=== PATIENT | female | born 1940 ===

== ENCOUNTER → 2024-12-23 10:53 | Outpatient (REF) | payer OTHER, SELFPAY | LOC: RAD 10:53 | PROVIDERS: ATTENDING PHYSICIAN Family Medicine | DX: M79.89 Other specified soft tissue disorders (principal); R09.89 Other specified symptoms and signs involving the circulatory and respiratory systems | CPT/HCPCS: 93922; 93925 ==

== ENCOUNTER 2025-05-03 14:58 | Inpatient (IN) | payer OTHER, SELFPAY ==
[2025-05-03] VITALS (11 sets, daily range): BP systolic 115–177; BP diastolic 59–109; BMI 19.3; BMI 18.6
[2025-05-03 11:53] LABS: Hematocrit 46.7 % (37.0-47.0); Hemoglobin 15.5 g/dL (12.0-16.0); Mean Corp Hgb Conc. 33.2 g/dL (33.0-37.0); Mean Corpuscular Volume 89.5 fL (81.0-99.0); Nucleated Red Blood Cells % 0 %; Platelet Count 317 10^3/uL (130-400); Red Cell Dist. Width 13.3 % (11.5-14.5)
[2025-05-03] MEDS: DECADRON 8 MG IV (12:00)
[2025-05-03] MEDS: DUONEB 3 ML INH ×2 (12:00→19:10)
[2025-05-03] MEDS: VENTOLIN NEBULES 7.5 MG INH (12:00)
[2025-05-03 12:07] LABS: ALT (SGPT) 58 U/L (0-35); AST (SGOT) 66 U/L (14-36); Albumin 4.2 g/dl (3.5-5.0); Alkaline Phosphatase 207 U/L (38-126); Blood Urea Nitrogen 32 mg/dl (7-17); Calcium 9.7 mg/dl (8.4-10.2); Carbon Dioxide 32 mmol/L (22-30); Chloride 92 mmol/L (98-107); Estimated Creatinine Clearance 40 ml/min; Glucose 123 mg/dl (70-99); Potassium 4.3 mmol/L (3.5-5.1); Sodium 133 mmol/L (135-145); Total Protein 7.7 g/dl (6.3-8.2); eGFR > 60.00
[2025-05-03 12:13] LABS: COVID-19 Antigen Negative (Negative)
--- NOTE | 2025-05-03 13:24 | HPS.HSE ---
Addendum entered and electronically signed by Armani Rainey MD 05/03/25 15:12:
This is an addendum to H&P written by Ada Batres on 05/03/2025. �Patient seen and examined independently with resident.
84-year-old female past medical history of hyperlipidemia, vertigo, essential hypertension, osteoporosis, COPD, hypothyroidism, presenting with shortness of breath 4 days. �Tmax 100. �Productive cough. �Generalized body aches and headaches, 1
episode diarrhea.
O2 saturation 70s requiring 2 L oxygen. �Tachycardic up to 120s. �Tachypneic. �Crackles on examination.
Labs show leukocytosis of 19. �Mild transaminitis. �COVID and flu negative. �Chest x-ray shows diffuse interstitial opacification with patchy superimposed airspace opacities likely pneumonia less likely atelectasis. �Appears to be 4.2 cm cystic
focus with layering hyperdensity inferiorly within the medial right lower lung pulmonary abscess possible hiatal hernia.
Patient with sepsis secondary to pneumonia/possible pulmonary abscess/COPD exacerbation. �Check CT PE chest. �IV fluids. �Check sputum culture, blood cultures, urine strep antigen, urine Legionella, Zosyn/doxycycline. �Continue DuoNebs,
dexamethasone.
Original Note:
Family Physician
-
Family Physician: Karen Aguilar MD
Chief Complaint
-
Shortness of breath
History of Present Illness
84-year-old female with past medical history of hyperlipidemia, vertigo, essential hypertension, osteoporosis, COPD/emphysema, hypothyroidism, presenting to the ER reporting shortness of breath. She was earlier seen by her primary care physician in
the office today, who were concerned about her low oxygen saturation and SOB and was advised to be seen at ER. Patient reports having congestion that started 4 days ago. She had spiked a temperature of Tmax�100 degrees a day later, and started
having shortness of breath, body aches, headaches, low appetite. Patient had an episode of diarrhea in the morning today. Reports having chest tightness, while breathing and she has been using her rescue inhaler more frequently than before�4
times/day. Patient also reports having chronic productive cough, but she always swallows sputum. Patient had 40 pack years of smoking history, quit 50 years ago. Patient also reports that she moved from [place] recently 6 months ago and lives
with her daughter. No history of multiple hospitalizations before, no history of IV drug abuse.
ED course�at presentation 150/87, pulse�125, RR�24, on 2 L NC saturating at 90%, afebrile. WBC�19.7, hemoglobin�15.5, sodium�133, BUN/creatinine�32/0.9, glucose 123, AST/ALT�66/58, ALP�207. Nursing mentioned that she was saturating in high 70s,
off supplemental oxygen. COVID/influenza-negative. EKG with sinus tachycardia. Chest x-ray�diffuse interstitial infiltrates suggesting pneumonia, 4.2 cm cystic focus in the medial right lower lung suggestive of pulmonary abscess.
Medical History
Past Medical History
Past Medical History: Reports Other (hyperlipidemia, vertigo, essential hypertension, osteoporosis, COPD/emphysema, hypothyroidism,)
Past Surgical History: Reports Orthopedic
Social History
Tobacco: Former Smoker (40 pack years, quit 50 years ago)
Alcohol: None
Drug: None
Living: With Family
Employment: Retired
Family History
Family History: Not pertinent
Allergies / Home Medications
Allergies reflects when Allergies were last updated in [facility].
Home Medications with original date entered in [facility]
Allergy/Medication List:
Allergies
Allergy/AdvReac Type Severity Reaction Status Date / Time
No Known Allergies Allergy Unverified 05/03/25 11:09
Home Medications
acetaminophen 325 mg tablet (Tylenol) 650 mg PO Q6HPRN PRN mild pain 05/03/25
atorvastatin 20 mg tablet (Lipitor) 20 mg PO QPM High Cholesterol 05/03/25
budesonide-formoterol HFA 160 mcg-4.5 mcg/actuation aerosol inhaler (Symbicort) 2 inh inhalation R DAILY sob 05/03/25
chlorthalidone 25 mg tablet 25 mg PO DAILY Fluid Retention/Swelling 05/03/25
diltiazem HCl 360 mg capsule,extended release 24 hr 360 mg PO DAILY Heart Disease/Condition 05/03/25
fluticasone 100 mcg-salmeterol 50 mcg/dose blistr powdr for inhalation (Advair Diskus) 1 inh inhalation R BID sob 05/03/25
levothyroxine 25 mcg tablet (Synthroid) 25 mcg PO DAILY Thyroid 05/03/25
metoprolol succinate 50 mg tablet,extended release 24 hr (Toprol XL) 50 mg PO BID Heart Disease/Condition 05/03/25
spironolactone 25 mg tablet 25 mg PO QPM Fluid Retention/Swelling 05/03/25
Review of Systems
-
A 12 point ROS was completed and negative except as noted: Yes
Physical Exam
Vital Signs
Vital Signs
Temp Pulse Resp BP Pulse Ox
98.4 F 123 30 163/86 97
05/03/25 11:08 05/03/25 12:00 05/03/25 12:00 05/03/25 12:00 05/03/25 12:00
Physical Exam
General: Conversant
HEENT: NormoCephalic, Atraumatic and Oxygen (On 2 L nasal cannula, saturating at 94%)
Respiratory: Rhonchi and Crackles
Cardiac: S1/S2 and Tachycardia
GI: Soft, Non Tender, Non Distended and Normal Bowel Sounds
Skin: Warm and Dry
Neuro: Awake, Alert, Oriented and AO x 3
Psych: Calm
Laboratory Results
-
05/03/25 11:28
05/03/25 11:28
Laboratory Results
Total Bilirubin 1.0 mg/dl (0.2-1.3) 05/03/25 11:28
AST 66 U/L (14-36) H 05/03/25 11:28
ALT 58 U/L (0-35) H 05/03/25 11:28
Alkaline Phosphatase 207 U/L (38-126) H 05/03/25 11:28
Impression/Plan
-
IMPRESSION:
84-year-old female with past medical history of hyperlipidemia, vertigo, essential hypertension, osteoporosis, COPD/emphysema, hypothyroidism, presenting to the ER reporting shortness of breath.
PLAN:
#Acute hypoxemic respiratory failure
#Sepsis
Likely secondary to pneumonia versus lung abscess, with evidence of end organ damage (patient requiring supplemental oxygen)
Elevated white count, patient reported T max of 100 degrees at home.
COVID/influenza negative
Risk factor�COPD/emphysema
Will start Zosyn, doxycycline
Check sputum culture/Gram stain
Check Legionella, strep Ag
Check blood culture
Start IV fluids
Wean oxygen as tolerated, maintain SpO2 between 88-92%
Will check CT chest IV contrast
Admit to telemetry
#Acute on chronic COPD exacerbation
Wean oxygen as tolerated, maintain SpO2 between 88 to 92%
Dexamethasone 4 mg IV every 12
DuoNebs
#Lung abscess
Risk factors with COPD/emphysema
Will check CT chest with IV contrast
Patient does not have dysphagia, no history of aspiration
#Hyperlipidemia
Continue atorvastatin
#Mild transaminitis
Will monitor LFTs
Likely due to dehydration
#Mild hyponatremia
Sodium at 133
Monitor
#Essential hypertension
Continue chlorthalidone, diltiazem
Continue metoprolol, spironolactone
#Hypothyroidism
Continue levothyroxine
#Osteoporosis
#BPPV
DVT prophylaxis�Lovenox subcu
Diet�low-cholesterol
Full code
Admit to telemetry
[2025-05-03] MEDS: ZITHROMAX INFUSION 250 IV (13:26)
[2025-05-03] MEDS: ROCEPHIN 1000 MG IV (13:26)
[2025-05-03] MEDS: DUONEB INH (17:04)
[2025-05-03] MEDS: NSS 1000 IV ×2 (17:12→18:53)
[2025-05-03] MEDS: LIPITOR 20 MG PO (17:17)
[2025-05-03] MEDS: CARDIZEM CD 360 MG PO (17:17)
[2025-05-03] MEDS: SYNTHROID 25 MCG PO (17:17)
[2025-05-03] MEDS: ALDACTONE 25 MG PO (17:17)
[2025-05-03] MEDS: DECADRON 4 MG IV ×2 (17:18→23:03)
[2025-05-03] MEDS: LOVENOX 40 MG SC (17:19)
[2025-05-03 18:04] LABS: Urine Character Clear (Clear)
[2025-05-03 18:26] LABS: Urine Urothelial Cell 0-2 /LPF (FEW)
[2025-05-03] MEDS: ADVAIR HFA 45/21 MCG INHALER 2 PUFF INH (19:10)
[2025-05-03] MEDS: TOPROL XL 50 MG PO (19:40)
[2025-05-03] MEDS: ZOSYN 50 IV (19:40)
[2025-05-03] MEDS: VIBRAMYCIN 100 MG PO (19:40)
[2025-05-04] VITALS (7 sets, daily range): BP systolic 102–130; BP diastolic 54–58; PULSE 88; O2SAT 95
[2025-05-04] MEDS: ZOSYN 50 IV ×4 (01:02→19:54)
[2025-05-04] MEDS: NSS 1000 IV ×3 (02:59→19:53)
[2025-05-04 04:48] LABS: ALT (SGPT) 44 U/L (0-35); AST (SGOT) 33 U/L (14-36); Albumin 2.9 g/dl (3.5-5.0); Alkaline Phosphatase 144 U/L (38-126); Blood Urea Nitrogen 22 mg/dl (7-17); Calcium 8.4 mg/dl (8.4-10.2); Carbon Dioxide 30 mmol/L (22-30); Chloride 101 mmol/L (98-107); Estimated Creatinine Clearance 43 ml/min; Glucose 151 mg/dl (70-99); Potassium 3.9 mmol/L (3.5-5.1); Sodium 137 mmol/L (135-145); Total Protein 5.7 g/dl (6.3-8.2); eGFR > 60.00
[2025-05-04] MEDS: DECADRON 4 MG IV (05:04)
[2025-05-04] MEDS: SYNTHROID 25 MCG PO (05:04)
[2025-05-04 05:26] LABS: Hematocrit 34.3 % (37.0-47.0); Hemoglobin 11.6 g/dL (12.0-16.0); Mean Corp Hgb Conc. 33.8 g/dL (33.0-37.0); Mean Corpuscular Volume 90.3 fL (81.0-99.0); Nucleated Red Blood Cells % 0 %; Platelet Count 186 10^3/uL (130-400); Red Cell Dist. Width 13.3 % (11.5-14.5)
[2025-05-04] MEDS: DUONEB 3 ML INH ×4 (07:41→19:55)
[2025-05-04] MEDS: ADVAIR HFA 45/21 MCG INHALER 2 PUFF INH (07:44)
[2025-05-04] MEDS: VIBRAMYCIN 100 MG PO ×2 (08:06→19:54)
[2025-05-04] MEDS: CARDIZEM CD 360 MG PO (08:06)
[2025-05-04] MEDS: TOPROL XL 50 MG PO ×2 (08:07→19:53)
[2025-05-04] MEDS: SYMBICORT 160/4.5 MCG INHALER 2 PUFF INH (08:25)
--- NOTE | 2025-05-04 10:00 | W.PN.HOSP.TC ---
Addendum entered and electronically signed by Tyler Monsalve DO 05/05/25 12:06:
Underweight
Original Note:
Today's Communication/Plan
-
Pulmonary consult
Continue ABX
Continue steroids
Assessment / Plan
Assessment / Plan
84-year-old female with past medical history of hyperlipidemia, vertigo, essential hypertension, osteoporosis, COPD/emphysema, hypothyroidism, presenting to the ER reporting shortness of breath.
PLAN:
#Acute hypoxemic respiratory failure
#Sepsis
#COPD
#Acute on chronic COPD exacerbation
CT chest with severe acute on chronic endobronchial infection on both lungs, bronchiectasis, thick walled cyst, nodular opacity
Likely secondary to pneumonia versus lung abscess versus bronchiolitis, with evidence of end organ damage (patient requiring supplemental oxygen)
Elevated white count, patient reported T max of 100 degrees at home.
COVID/influenza negative
Risk factor�COPD/emphysema
Obtain sputum culture/Gram stain
Legionella, strep Ag negative
Follow-up blood culture
Continue IV fluids
Wean oxygen as tolerated, maintain SpO2 between 88-92%
-Continue Zosyn, doxycycline
- Continue IV fluids
- On 2 L supplemental oxygen
- Dexamethasone 4 mg IV every 12
- DuoNebs
- Pulmonary consulted, appreciate recs
#Lung abscess
Risk factors with COPD/emphysema
CT chest with severe acute on chronic endobronchial infection on both lungs, bronchiectasis, thick walled cyst, nodular opacit
-Continue Zosyn and doxycycline
#Hyperlipidemia
Continue atorvastatin
#Mild transaminitis
CT chest with moderate hepatic cirrhosis
Will monitor LFTs
#Mild hyponatremia, resolved
Sodium at 137
Monitor
#Essential hypertension
Continue chlorthalidone, diltiazem
Continue metoprolol, spironolactone
#Hypothyroidism
Continue levothyroxine
DVT prophylaxis�Lovenox subcu
Diet�low-cholesterol
CODE STATUS: Full code
Anticipated Discharge: 24 - 48 hours
Subjective/Interval History
-
Patient reports feeling much better than yesterday. Reports improved shortness of breath but has not gotten up and moved around to assess if she has shortness of breath with exertion. She reported no chest pain and 1 episode of diarrhea. Reports
no fevers or chills yesterday no nausea vomiting. When asked about heart medications patient does not endorse any heart issues. Patient did endorse chronic cough but has not noticed any change in phlegm and she does not spit out. Date of Service:
May 04, 2025
Objective Data
-
Labs:
Laboratory Results
05/04/25
04:05
WBC 7.1
Hgb 11.6 L D
Hct 34.3 L
Plt Count 186 D
Sodium 137
Potassium 3.9
Chloride 101
Carbon Dioxide 30
BUN 22 H
Creatinine 0.8
Glucose 151 H
Calcium 8.4
Total Bilirubin 0.4
AST 33
ALT 44 H
Alkaline Phosphatase 144 H
Vital Signs:
Vital Signs
Temp Pulse Resp BP Pulse Ox
98.0 F 97 18 148/71 99
05/04/25 03:00 05/04/25 08:06 05/04/25 07:46 05/04/25 08:06 05/04/25 07:46
I&O
05/03/25 05/04/25 05/05/25
06:59 06:59 06:59
Intake Total 1600 / 1600
Balance 1600 / 1600
Review of Systems
-
History Source: Patient
Constitutional: Denies Fever or Chills
EENT: Denies Runny Nose
Respiratory: Reports Cough; Denies Wheezing
Cardiac: Denies Chest Pain or Palpitations
Abdomen/GI: Denies Abdominal Pain, Nausea, Vomiting, Diarrhea or Constipated
Genitourinary: Denies Dysuria
Neuro: Denies Headache or Ataxia
Physical Exam
-
General: Well Developed, Well Nourished, No Apparent Distress and Comfortable; Negative Fever
HEENT: Normocephalic and Atraumatic
Respiratory: Crackles (Upper lung pena bilaterally) and Non Labored Respirations; Negative Wheezes
Cardiac: Regular Rhythm and S1/S2; Negative Murmur
GI: Soft, Nontender, Nondistended and Normal Bowel Sounds
Musculoskeletal: No Edema
Skin: Warm and Dry
[2025-05-04] MEDS: PROTONIX 40 MG PO (11:50)
[2025-05-04] MEDS: DELTASONE 40 MG PO (11:50)
--- NOTE | 2025-05-04 12:00 | CON.PUL ---
Consultation
Consultation Request
Date/Time Consultation Requested: 05/04/2024
Date/Time Consultation Performed: 05/04/2025
Requesting Provider: Dr. Rainey
Performing Provider: Dr. Fredo Hobbs
Reason for Consultation: Pneumonia
Medical History
-
History of Present Illness:
84-year-old woman with past medical history significant for hyperlipidemia, hypertension, osteoporosis, COPD/emphysema, hypothyroidism who presented to the emergency room complaining of shortness of breath.
Prior to admission she was seen by primary care and she was found to be hypoxemic. She was sent to the emergency room for evaluation.
Patient reports symptoms started about 4 days prior to admission with congestion and low-grade fevers.
Denied any hemoptysis or purulent sputum production.
She did report some diarrhea earlier prior to admission.
She recently moved from [place] 6 months ago and lives with her daughter.
-She was found to be
Short of breath, she had leukocytosis, chest x-ray showed bilateral increased interstitial infiltrates suggestive of pneumonia.
I was consulted for further evaluation on 05/04/2025.
Past Medical History
Past Medical History: Other (See assessment and plan)
Social History
Tobacco: Former Smoker (Quit many years ago)
Alcohol: None
Living: With Family
Employment: Retired
Family History
Family History: Reviewed & Not Pertinent
Allergies / Home Medications
Allergies
Allergy/AdvReac Type Severity Reaction Status Date / Time
No Known Allergies Allergy Unverified 05/03/25 11:09
Home Medications
�Medication �Instructions �Recorded �Confirmed �Last Taken �Type
acetaminophen 325 mg tablet 650 mg PO Q6HPRN PRN mild pain 05/03/25 05/03/25 05/01/25 History
(Tylenol)
atorvastatin 20 mg tablet (Lipitor) 20 mg PO QPM High Cholesterol 05/03/25 05/03/25 05/02/25 History
budesonide-formoterol HFA 160 2 inh inhalation R DAILY sob 05/03/25 05/03/25 05/02/25 History
mcg-4.5 mcg/actuation aerosol
inhaler (Symbicort)
chlorthalidone 25 mg tablet 25 mg PO DAILY Fluid 05/03/25 05/03/25 05/02/25 History
Retention/Swelling
diltiazem HCl 360 mg 360 mg PO DAILY Heart 05/03/25 05/03/25 05/02/25 History
capsule,extended release 24 hr Disease/Condition
fluticasone 100 mcg-salmeterol 50 1 inh inhalation R BID sob 05/03/25 05/03/25 05/02/25 History
mcg/dose blistr powdr for
inhalation (Advair Diskus)
levothyroxine 25 mcg tablet 25 mcg PO DAILY Thyroid 05/03/25 05/03/25 05/02/25 History
(Synthroid)
metoprolol succinate 50 mg 50 mg PO BID Heart 05/03/25 05/03/25 05/02/25 History
tablet,extended release 24 hr Disease/Condition
(Toprol XL)
spironolactone 25 mg tablet 25 mg PO QPM Fluid 05/03/25 05/03/25 05/02/25 History
Retention/Swelling
Review of Systems
-
History Source: Patient
All other systems: Negative unless noted
Vitals / Labs / Diagnostic Testing
Vital Signs
Temp Pulse Resp BP Pulse Ox
98.0 F 97 18 148/71 99
05/04/25 03:00 05/04/25 08:06 05/04/25 07:46 05/04/25 08:06 05/04/25 07:46
Lab Data
05/04/25 04:05
05/04/25 04:05
Microbiology
05/03/25 17:50 Urine Legionella Urinary Antigen - Final
Negative for Legionella pneumophila Serogroup 1 antigen.
A negative result does not rule out the possiblity of
Legionella infection due to other serogroups or species of
Legionella. Clinical correlation is recommended.
05/03/25 17:50 Urine Streptococcus pneumoniae Antigen (M - Final
Negative for Streptococcus pneumoniae antigen.
A negative result does not exclude infection with
Streptococcus pneumoniae. Clinical correlation is
recommended.
05/03/25 11:28 Nasal Swab Influenza Types A & B (JEFF) - Final
Negative for Influenza A & B, NAAT
Negative results must be combined with clinical observations
and patient history.
Nucleic Acid Amplification test (NAAT)performed on the
[employer] platform.
Diagnostic Testing:
Physical Exam
-
HEENT: Normocephalic
Cardiovascular: S1/S2
Respiratory: Rales and Non-Labored Respirations
GI: Soft and Non Distended
Neurology: Awake and Alert
Skin: Warm
General: Comfortable
Assessment
-
84-year-old woman with history of COPD/emphysema. Former smoker. Came complaining of chest congestion and shortness of breath. Shortness of breath was progressive to the point that it was with minimal effort. She did develop a fever.
She usually coughs but does not produce sputum.
Denies hemoptysis.
Denies leg edema.
She has not seen a shoe cleaner for many years-recently moved from [place].
Community-acquired pneumonia versus chronic endobronchial infection such as LIZ-no previous CAT scan to review.
Mild/moderate acute COPD exacerbation triggered by above
CT chest 05/03/2025: Bilateral moderate to severe bronchiectasis. Chronic endobronchial infection throughout both lungs. 3.8 cm thick walled cyst right lower lobe. Small amount of fluid possibly Bilitis. 1.3 cm peripheral nodule airspace
consolidation in the lingula. Mild mediastinal lymphadenopathy. Severe calcific atherosclerotic plaque. Moderate cirrhosis. Moderate hiatal hernia. Kyphosis
Acute respiratory insufficiency currently on 2-3 L supplemental oxygen. Usually only on nocturnal oxygen.
Leukocytosis
Conditions present prior admission:
Former smoker [id number] history quit 50 years ago
COPD/bronchiectasis
On Advair
Recently moved from [place]
No peripheral eosinophilia
Hyperlipidemia
Vertigo
Essential hypertension
Osteoporosis
Hypothyroidism
Assessment and plan:
Acute exacerbation of COPD/bronchiectasis-possible endobronchial infection likely bacterial.
No prior imaging to review
Patient has chronic bronchiectasis with areas of bronchiolitis-cannot rule out chronic endobronchial infection such as LIZ. This will need to be addressed in the outpatient setting
Right lower lobe bulla with mild fluid content-possible colitis.
-
So far microbiology negative including Legionella urine antigen/streptococcal pneumoniae urine antigen
Blood cultures are pending
Will obtain sputum culture
Influenza negative
COVID-negative
-
At this point agree with current regimen:
Zosyn/doxycycline
Obtain a sputum culture-pending
Wait for blood cultures
Hopefully can de-escalate antibiotics rapidly
-
Prednisone taper 40 mg and decrease by 10 mg every 72 hours to off-not significantly bronchospastic on my exam.
Acapella device
If unable to clear secretions may qualify for vest therapy
Continue DuoNebs 4 times a day while in the hospital.
For now continue inhalers-this could be optimized in the outpatient setting.
-
Patient states that she has not seen a shoe cleaner in many years.
Only wears oxygen at night
Obtain home oxygen assessment tomorrow
Currently on 2 L. Does not appear in distress and she feels better.
-
Patient will need radiographic follow-up in the outpatient setting
At risk for carcinoma
-
Will continue to follow
-
Patient would like to follow-up locally. Information will be left in the chart.
[2025-05-04] MEDS: ASPIR LOW (ENTERIC COATED) 81 MG PO (14:45)
--- NOTE | 2025-05-04 15:02 | CM ---
Alert awake patient who lives with dgt Renetta in a one story home with 0 step to enter. She is independent with ADLs at home. She uses oxygen at home . Pt bought on portable oxygen tank.She does drive.
No VN HX or SNF hx.
[facility].
PCP DR Aguilar
PLAN Needs PT OT mela for dc planning.
[2025-05-04] MEDS: LOVENOX 40 MG SC (18:22)
[2025-05-04] MEDS: ALDACTONE 25 MG PO (18:22)
[2025-05-04] MEDS: LIPITOR 20 MG PO (18:22)
[2025-05-05] MEDS: MELATONIN 5 MG PO (00:58)
[2025-05-05] MEDS: ZOSYN 50 IV ×3 (02:02→13:02)
[2025-05-05 03:00] VITALS: BP 109/62
[2025-05-05] MEDS: NSS 1000 IV (04:52)
[2025-05-05] MEDS: SYNTHROID 25 MCG PO (05:49)
[2025-05-05] MEDS: DUONEB 3 ML INH ×3 (07:23→14:49)
[2025-05-05] MEDS: SYMBICORT 160/4.5 MCG INHALER 2 PUFF INH (07:23)
[2025-05-05 07:30] VITALS: BP 112/68
[2025-05-05] MEDS: TOPROL XL 50 MG PO (08:24)
[2025-05-05] MEDS: CARDIZEM CD 360 MG PO (08:25)
[2025-05-05] MEDS: ASPIR LOW (ENTERIC COATED) 81 MG PO (08:25)
[2025-05-05] MEDS: VIBRAMYCIN 100 MG PO (08:25)
[2025-05-05] MEDS: PROTONIX 40 MG PO (08:25)
[2025-05-05 09:18] LABS: Blood Urea Nitrogen 23 mg/dl (7-17); Calcium 8.5 mg/dl (8.4-10.2); Carbon Dioxide 26 mmol/L (22-30); Chloride 105 mmol/L (98-107); Estimated Creatinine Clearance 38 ml/min; Glucose 133 mg/dl (70-99); Potassium 4.2 mmol/L (3.5-5.1); Sodium 135 mmol/L (135-145); eGFR > 60.00
[2025-05-05 09:31] LABS: Hematocrit 36.4 % (37.0-47.0); Hemoglobin 11.5 g/dL (12.0-16.0); Mean Corp Hgb Conc. 31.6 g/dL (33.0-37.0); Mean Corpuscular Volume 96.8 fL (81.0-99.0); Platelet Count 259 10^3/uL (130-400); Red Cell Dist. Width 13.5 % (11.5-14.5)
[2025-05-05] MEDS: DELTASONE PO (09:33)
--- NOTE | 2025-05-05 09:44 | PN.CDI ---
CDI
- -
CDI:
Physician Documentation Request
Admit Date: 05/03/25 14:58
Dear Doctor,
Patient admitted for pneumonia.
Please review the following and provide your response in the progress notes.
Clinical Indicators:
Height: 5'6'
Weight: 115 lbs
BMI: 18.6
If possible, please provide an associated diagnosis related to the abnormal BMI, such as:
Underweight
Cachectic
BMI is not significant
Other
BMI < or = to 19.9
Underweight
Weight Loss
Cachectic
Anorexia
Use of terms such as suspected, likely, concern for, or probable (associated with a specific diagnosis that is being evaluated, monitored, or treated as if it exists) are acceptable and can be coded in the inpatient setting, when documented at the
time of discharge.
Thank you,
Beulah Tracey RN, BSN
CDI Specialist
Available via [facility] text
Please use your independent medical judgment in providing your response.
--- NOTE | 2025-05-05 11:25 | PN.CDI ---
CDI
- -
CDI:
Physician Documentation Request
Admit Date: 05/03/25 14:[address] Alejo,
[facility] is using an adapted version of the 2016 Third International Consensus Definitions for Sepsis and Septic Shock (Sepsis-3) where sepsis is defined as life threatening organ dysfunction caused by a deregulated host response to infection.
Please reference the official [facility] Sepsis Recognition Tool for further information, which can be found on the Intranet under Infection Prevention.
05/04 Hospitalist PN: '#Acute hypoxemic respiratory failure #Sepsis...Likely secondary to pneumonia versus lung abscess versus bronchiolitis, with evidence of end organ damage (patient requiring supplemental oxygen)'
Based on your medical judgment, can you please clarify whether or not the above organ dysfunction is related to or due to sepsis?
-- Sepsis due to pneumonia v lung abscess v bronchiolitis with organ dysfunction of acute hypoxic respiratory failure
-- Sepsis due to pneumonia v lung abscess v bronchiolitis with organ dysfunction of
-- Other (please specify)
-- Clinically unable to determine��
Use of terms such as suspected, likely, concern for, or probable (associated with a specific diagnosis that is being evaluated, monitored, or treated as if it exists) are acceptable and can be coded in the inpatient setting when documented at the
time of discharge.
Please use your independent medical judgement in providing your response.
Thank you,
Beulah Tracey RN, BSN
CDI Specialist
Available via [facility] text
[2025-05-05 11:30] VITALS: BP 108/63
--- NOTE | 2025-05-05 12:08 | W.PN.HOSP.TC ---
Addendum entered and electronically signed by Tyler Monsalve DO 05/05/25 14:38:
Sepsis due to pneumonia and bronchiolitis with organ dysfunction of acute hypoxic respiratory failure
Original Note:
Today's Communication/Plan
-
DC with steroids
Home O2 assessment
Dispo planning
Assessment / Plan
Assessment / Plan
84-year-old female with past medical history of hyperlipidemia, vertigo, essential hypertension, osteoporosis, COPD/emphysema, hypothyroidism, presenting to the ER reporting shortness of breath from PCP office where her O2 sats were in the 70s.
Patient reported fever with Tmax of 100 at home chronic productive cough but has not noticed change in her phlegm mild chest tightness and in the ED she was placed on 2 L of oxygen found to have elevated white count and elevated liver enzymes.
COVID and flu were negative and chest x-ray showed interstitial infiltrates suggesting pneumonia and a cystic focus concerning for pulmonary abscess. CT chest was conducted which showed severe acute on chronic endobronchial infection and a nodular
opacity. Patient was started on antibiotics given IV fluids and steroids and admitted to the hospital for sepsis due to pneumonia. In the hospital pulmonology was consulted and patient continued to improve but had adverse reaction to p.o. steroids
which were discontinued due to improving physical exam and clinical status. Blood cultures have grown nothing to date at 24 hours, sputum culture pending. Patient was assessed by respiratory for home O2 requirements,
PLAN:
#Acute hypoxemic respiratory failure
#Sepsis due to pneumonia versus endobronchial lightest causing endorgan dysfunction with acute hypoxemic respiratory failure
#COPD
#Acute on chronic COPD exacerbation
CT chest with severe acute on chronic endobronchial infection on both lungs, bronchiectasis, thick walled cyst, nodular opacity
Likely secondary to pneumonia versus lung abscess versus bronchiolitis, with evidence of end organ damage (patient requiring supplemental oxygen)
Elevated white count, patient reported T max of 100 degrees at home.
COVID/influenza negative
Risk factor�COPD/emphysema
Obtain sputum culture/Gram stain
Legionella, strep Ag negative
Follow-up blood culture no growth to date 24 hours
DC IV fluids
Wean oxygen as tolerated, maintain SpO2 between 88-92%
-Continue Zosyn, doxycycline
- On 2 L supplemental oxygen
- DC steroid due to delirium
- DuoNebs
-Tessalon Perles
-Home O2 assessment
- Pulmonary consulted, appreciate recs
#Lung abscess
Risk factors with COPD/emphysema
CT chest with severe acute on chronic endobronchial infection on both lungs, bronchiectasis, thick walled cyst, nodular opacit
-Continue Zosyn and doxycycline
#Hyperlipidemia
Continue atorvastatin
#Mild transaminitis improving
CT chest with moderate hepatic cirrhosis
Likely elevated also in the setting of infection and sepsis
Will monitor LFTs
Outpatient follow-up
#Mild hyponatremia, resolved
Sodium at 135
Monitor
#Essential hypertension
Continue chlorthalidone, diltiazem
Continue metoprolol, spironolactone
#Hypothyroidism
Continue levothyroxine
#Underweight
BMI 18
Material Attendant consult
DVT prophylaxis�Lovenox subcu
Diet�low-cholesterol
CODE STATUS: Full code
Anticipated Discharge: Within 24 hours
Subjective/Interval History
-
Patient was seen at bedside, reports had jitteriness and patch dreams as well as auditory hallucinations most likely due to steroids. Otherwise she reports feeling better with improving shortness of breath no nausea vomiting no chest pain no
abdominal pain no burning with urination. Date of Service: May 05, 2025
Objective Data
-
Labs:
Laboratory Results
05/05/25
07:46
WBC 12.3 H
Hgb 11.5 L
Hct 36.4 L
Plt Count 259 D
Sodium 135
Potassium 4.2
Chloride 105
Carbon Dioxide 26
BUN 23 H
Creatinine 0.9
Glucose 133 H
Calcium 8.5
Vital Signs:
Vital Signs
Temp Pulse Resp BP Pulse Ox
97.5 F 78 18 108/63 92
05/05/25 11:30 05/05/25 11:59 05/05/25 11:59 05/05/25 11:30 05/05/25 11:59
I&O
05/04/25 05/05/25 05/06/25
06:59 06:59 06:59
Intake Total 1600 / 1600 240 / 240
Balance 1600 / 1600 240 / 240
Review of Systems
-
History Source: Patient
Constitutional: Reports Sleep Disturbance (Auditory hallucinations); Denies Fever or Chills
EENT: Denies Sore Throat or Runny Nose
Respiratory: Reports Cough; Denies Trouble Breathing or Wheezing
Cardiac: Denies Chest Pain or Palpitations
Abdomen/GI: Denies Abdominal Pain, Nausea, Vomiting, Diarrhea or Constipated
Genitourinary: Denies Dysuria
Skin: Denies Itching
Neuro: Denies Headache or Weakness
Physical Exam
-
General: Well Developed, Well Nourished, No Apparent Distress and Comfortable; Negative Fever
HEENT: Normocephalic and Atraumatic
Respiratory: Crackles (Mild upper lung pena) and Non Labored Respirations; Negative Wheezes or Accessory Resp Muscle Use
Cardiac: Regular Rhythm and S1/S2; Negative Murmur
GI: Soft, Nontender, Nondistended and Normal Bowel Sounds
Musculoskeletal: No Clubbing and No Edema
Skin: Warm and Dry
Neuro: Awake, Alert and Oriented
[2025-05-05] MEDS: NSS IV (12:10)
--- NOTE | 2025-05-05 12:36 | W.PN.PUL3 ---
Today's Communication / Plan
-
Discontinue prednisone
Restart inhalers upon discharge
7 days of antibiotics for community-acquired infection
Can continue nebulizers while in the hospital.
Continue Acapella device
Short-term follow-up in my office
Home oxygen assessment prior to discharge-patient has oxygen at home that she uses on a as needed basis.
Agree with discharge planning.
Physical therapy/Occupational Therapy-patient feels debilitated.
Please call with questions.
Sign off
Assessment
-
84-year-old woman with history of COPD/emphysema. Former smoker. Came complaining of chest congestion and shortness of breath. Shortness of breath was progressive to the point that it was with minimal effort. She did develop a fever.
She usually coughs but does not produce sputum.
Denies hemoptysis.
Denies leg edema.
She has not seen a entry level business analyst for many years-recently moved from [place].
Community-acquired pneumonia versus chronic endobronchial infection such as LIZ-no previous CAT scan to review.
Mild/moderate acute COPD exacerbation triggered by above
CT chest 05/03/2025: Bilateral moderate to severe bronchiectasis. Chronic endobronchial infection throughout both lungs. 3.8 cm thick walled cyst right lower lobe. Small amount of fluid possibly Bilitis. 1.3 cm peripheral nodule airspace
consolidation in the lingula. Mild mediastinal lymphadenopathy. Severe calcific atherosclerotic plaque. Moderate cirrhosis. Moderate hiatal hernia. Kyphosis
Acute respiratory insufficiency currently on 2-3 L supplemental oxygen. Usually only on nocturnal oxygen.
Leukocytosis
Conditions present prior admission:
Former smoker [id number] history quit 50 years ago
COPD/bronchiectasis
On Advair
Recently moved from [place]
No peripheral eosinophilia
Hyperlipidemia
Vertigo
Essential hypertension
Osteoporosis
Hypothyroidism
Assessment and plan:
Mild acute exacerbation of COPD/bronchiectasis-possible endobronchial infection likely bacterial.
No prior imaging to review
Patient has chronic bronchiectasis with areas of bronchiolitis-cannot rule out chronic endobronchial infection such as LIZ. This will need to be addressed in the outpatient setting
Right lower lobe bulla with mild fluid content-possible colitis.
-Remains afebrile.
So far microbiology negative including Legionella urine antigen/streptococcal pneumoniae urine antigen
Blood cultures are negative.
Will obtain sputum culture-unable to produce.
Influenza negative
COVID-negative
-
At this point agree with current regimen:
Zosyn/doxycycline transition to oral antibiotics and complete 7 days to cover for community-acquired infection.
Right lower lobe bulla-doubt abscess.
Likely bulllitis --will need radiographic follow-up in the outpatient setting.
-
Not significantly bronchospastic.
Discontinue prednisone-patient developed insomnia and some hallucinations overnight. This morning mental status back to baseline.
Acapella device-should continue at home
Restart Symbicort upon discharge.
Continue DuoNebs 4 times a day while in the hospital.
For now continue inhalers-this could be optimized in the outpatient setting.
-
Patient states that she has not seen a entry level business analyst in many years.
Only wears oxygen at night
Obtain home oxygen assessment
Currently on 2 L. Does not appear in distress and she feels better.
-
Patient will need radiographic follow-up in the outpatient setting
At risk for carcinoma
-
Agree with discharge planning today.
Outpatient pulmonary follow
-
Patient would like to follow-up locally. Information will be left in the chart.
Subjective Data
-
Date of Service:
Date of Service: May 05, 2025
Chief Complaint: Pulmonary Follow Up (Pneumonia/hypoxemia)
Subjective:
Feels better
Apparently slight confused overnight
Denies any wheezing
Denies shortness of breath
Denies hemoptysis appearance. Production
Review of Systems
Cardiopulmonary: Dyspnea (Improved), Cough, Sputum Production and Wheezing (Resolved)
Objective Data
Data Reviewed
Vital Signs / I&O / Oxygen:
Vital Signs
Temp Pulse Resp BP Pulse Ox
97.5 F 78 18 108/63 92
05/05/25 11:30 05/05/25 11:59 05/05/25 11:59 05/05/25 11:30 05/05/25 11:59
Intake and Output
05/04/25 05/05/25 05/06/25
06:59 06:59 06:59
Intake Total 1600 / 1600 240 / 240
Balance 1600 / 1600 240 / 240
SaO2 92
Nasal Cannula flow liters per 2
minute
Physical Exam
General: Comfortable
HEENT: Normocephalic
Cardiovascular: S1-S2
Respiratory: Wheeze (n), Crackles and Non-Labored Respirations
GI: Soft and Non Distended
Neurology: Awake
Labs/Micro/Reports
Lab Data
05/05/25 07:46
05/05/25 07:46
Microbiology
05/03/25 17:40 Blood/Venous Blood Culture - Preliminary
No Growth in 24 hours- Final report to follow
05/03/25 17:40 Blood/Venous Blood Culture - Preliminary
No Growth in 24 hours- Final report to follow
05/03/25 13:23 Blood/Venous Blood Culture - Preliminary
No Growth in 24 hours- Final report to follow
05/03/25 13:23 Blood/Venous Blood Culture - Preliminary
No Growth in 24 hours- Final report to follow
05/03/25 17:50 Urine Legionella Urinary Antigen - Final
Negative for Legionella pneumophila Serogroup 1 antigen.
A negative result does not rule out the possiblity of
Legionella infection due to other serogroups or species of
Legionella. Clinical correlation is recommended.
05/03/25 17:50 Urine Streptococcus pneumoniae Antigen (M - Final
Negative for Streptococcus pneumoniae antigen.
A negative result does not exclude infection with
Streptococcus pneumoniae. Clinical correlation is
recommended.
05/03/25 11:28 Nasal Swab Influenza Types A & B (JEFF) - Final
Negative for Influenza A & B, NAAT
Negative results must be combined with clinical observations
and patient history.
Nucleic Acid Amplification test (NAAT)performed on the
[employer] platform.
[2025-05-05] MEDS: TESSALON PERLES 100 MG PO (13:46)
[2025-05-05 14:20] VITALS: PULSE 88; O2SAT 94
--- NOTE | 2025-05-05 14:38 | CM ---
Addendum entered by Kee Carlson 05/05/25 15:54:
Received call from [facility], reviewed patient's insurance and confirmed that patient has [employer] HMO, not PPO, which they do not accept
Called [facility], confirmed patient's HMO plan is accepted. Clinicals and script faxed to [facility]
Updated patient's daughter
Addendum entered by Kee Carlson 05/05/25 15:22:
Patient now agreeable to home O2. Confirmed [employer] accepts patient's insurance. Spoke w/ Mariza/Fanny to review patient's O2 needs. O2 script and clinicals faxed to [facility] ([phone]). Portable concentrator will be delivered to patient' bedside
prior to d/c home today
Original Note:
Chart reviewed. Per PA, planning to d/c patient today
Patient remains on 2L O2, patient uses 2L at home nocturnally. Home O2 assessment completed, patient requiring 3L during ambulation.
Therapy recommending home health services
Discussed w/ patient about home care and O2 needs. Patient agreeable to home PT, declined needing a VN. Patient stated she doesn't think she needs the O2, patient stated she has a portable that she paid for and uses it at night and can use it if she
needs it. CM explained to patient she qualifies for home O2 as it appears she needs it continuously now. Patient continued to decline stating the pneumonia is causing her O2 levels to drop.
TT PA about patient's decline to O2, PA will talk w/ patient
Patient agreeable to referral to VN for PT, referral placed in [facility]
Daughter will transport
IMM verbally reviewed, copy provided, copy on chart
[facility]

Plan: Home w/ [facility]
Home O2 if patient is agreeable to it
[2025-05-05 15:15] VITALS: BP 134/61
--- NOTE | 2025-05-05 16:09 | VNURNOTE ---
Home Health Liaison met with patient at bedside to discuss [facility] nurse/therapy, visits, schedule and homebound status. Patient is agreeable and understands that visits at home will be 2-3 x per week to assess and teach medical management. Patient
is aware that [facility] will contact them for start of care within a week after discharge from . Provided contact number for [facility].
Home 02 arranged by CM with Mamie.
[facility] referral in [facility].
--- NOTE | 2025-05-05 17:19 | W.DCSUMMARY ---
Discharge Summary
Discharge Data
Date of Admission: 05/03/25
Date of Discharge: 05/05/25
-
Pending Results: No
Hospital Course
Discharging Physician :
Dr. Monsalve
Dr. Alejo
Disposition :
Home with home health
Primary care physician :
Karen Aguilar MD
Principal Discharge diagnosis :
Sepsis due to pneumonia with acute hypoxemic respiratory failure
Chronic Discharge diagnosis :
hyperlipidemia
vertigo
essential hypertension
osteoporosis
COPD/emphysema
hypothyroidism
Hospital Course :
Ms Buenrostro is a 84-year-old female with past medical history of hyperlipidemia, vertigo, essential hypertension, osteoporosis, COPD/emphysema, hypothyroidism, presented to the ER reporting shortness of breath from PCP office where her O2 sats were in
the 70s. Patient reported fever with Tmax of 100 at home chronic productive cough but has not noticed change in her phlegm mild chest tightness and in the ED she was placed on 2 L of oxygen found to have elevated white count and elevated liver
enzymes. COVID and flu were negative and chest x-ray showed interstitial infiltrates suggesting pneumonia and a cystic focus concerning for pulmonary abscess. CT chest was conducted which showed severe acute on chronic endobronchial infection and a
nodular opacity, with no definitive pulmonary abscess. Patient was started on antibiotics given IV fluids and steroids and admitted to the hospital for sepsis due to pneumonia with acute hypoxemic respiratory failure. In the hospital pulmonology
was consulted and patient continued to improve but had adverse reaction to p.o. steroids which were discontinued due to improving physical exam, decreased oxygen requirements, and clinical status. Blood cultures have grew nothing to date at 24
hours, sputum culture was unable to be collected as patient could not produce phlegm. Patient was assessed by respiratory for home O2 requirements which were determined to be 3 L. Patient was afebrile with stable vital signs and she was stable for
discharge. Patient to follow-up with outpatient pulmonology for repeat chest imaging.
Important imaging findings :
05/03/2025 chest x-ray:
IMPRESSION:
Diffuse interstitial opacification with patchy superimposed airspace opacities favored to represent pneumonia, less likely edema/atelectasis.
There is an apparent 4.2 cm cystic focus with layering hyperdensity inferiorly within the medial right lower lung for which the pulmonary abscess is possible. A paraesophageal hernia is also within the differential. Recommend further evaluation with
dedicated CT chest.
05/03/[address]:
IMPRESSION:
1. SEVERE ACUTE on CHRONIC ENDOBRONCHIAL INFECTION throughout both lungs (possibly atypical mycobacterial infection) with bronchitis and peripheral endobronchial impaction.
2. VARICOID BRONCHIECTASIS in the right lower and middle lobes and cylindrical bronchiectasis in the left lower lobe and in both upper lobes suggesting chronic bronchitis and endobronchial infection.
3. 3.8 cm THICK WALLED CYST in the medial basilar segment of the right lower lobe containing minimal layering fluid suggesting cyst infection.
4. 1.3 cm peripheral nodular airspace consolidation in the inferior segment of the lingula. Diagnostic possibilities are (1) mild pneumonia or peripheral endobronchial infection, (2) scarring, or (3) lung cancer.
5. Mild mediastinal and bilateral hilar lymphadenopathy.
6. Severe calcific atherosclerotic plaque in the thoracic aorta.
7. Moderate hepatic cirrhosis.
8. Severe asymmetric right renal atrophy (probably ischemia from chronic right renal artery stenosis).
9. Moderate-sized hiatal hernia with severe thickening of the gastric wall. Diagnostic possibilities are (1) gastritis and esophagitis, (2) submucosal varices, or (3) gastric carcinoma.
10. Moderately exaggerated thoracic kyphosis.
11. Superior endplate fractures of T7 and T12 with moderate loss of vertebral body height.
Procedure findings :
Discharge Plan
-
Patient Disposition: Home (Routine Discharge)
Discharge Diagnosis/Procedures: Sepsis due to pneumonia with acute hypoxemic respiratory failure
Condition: Fair
Diet: Low Cholesterol
Activity: No restrictions
Driving Restrictions: As prior to admission
Bathing Restrictions: None
Other Services: PT
Referrals:
Fredo Hale MD [Active, Pulmonary Medicine] - in two to three weeks
Referral Note: May see MANAGER CALL -PFT/6MWT
Karen Aguilar MD [Family Provider, [facility]] - in less than 1 week
Prescriptions:
New
doxycycline hyclate 100 mg Capsule
100 mg PO BID Qty: 8 0RF
Continued
atorvastatin [Lipitor] 20 mg Tablet
20 mg PO QPM
acetaminophen [Tylenol] 325 mg Tablet
650 mg PO Q6HPRN PRN (Reason: mild pain)
metoprolol succinate [Toprol XL] 50 mg Tablet Extended Release 24 Hr
50 mg PO BID
diltiazem HCl 360 mg Capsule,Extended Release 24hr
360 mg PO DAILY
chlorthalidone 25 mg Tablet
25 mg PO DAILY
spironolactone 25 mg Tablet
25 mg PO QPM
levothyroxine [Synthroid] 25 mcg Tablet
25 mcg PO DAILY
fluticasone propion-salmeterol [Advair Diskus] 100-50 mcg/dose Blister With Device
1 inh INHALATION R BID
budesonide-formoterol [Symbicort] 160-4.5 mcg/actuation Hfa Aerosol Inhaler
2 inh INHALATION R DAILY
Discharge Orders:
Discharge Patient (As Directed); Ordered 05/05/25
Ordered By: Phong Alejo
Discharge Date and Time
Print Language: ALBANIAN
[2025-05-05] MEDS: LIPITOR 20 MG PO (17:21)
[2025-05-05] MEDS: ALDACTONE 25 MG PO (17:21)
[2025-05-05] MEDS: LOVENOX SC (17:22)
== END 2025-05-05 18:25 | disposition home or self-care (01) | DRG 871 ==
LOC: 4 WEST ACU 14:58
PROVIDERS: Student in an Organized Health Care Education/Training Program; ADMITTING PHYSICIAN Hospitalist; ATTENDING PHYSICIAN Internal Medicine; CONSULT PHYSICIAN Internal Medicine Critical Care Medicine; EMERGENCY PHYSICIAN Emergency Medicine; FAMILY PHYSICIAN Family Medicine
DX: A41.9 Sepsis, unspecified organism (principal); J18.9 Pneumonia, unspecified organism; J96.01 Acute respiratory failure with hypoxia; J44.1 Chronic obstructive pulmonary disease with (acute) exacerbation; J47.0 Bronchiectasis with acute lower respiratory infection; E87.1 Hypo-osmolality and hyponatremia; J44.0 Chronic obstructive pulmonary disease with (acute) lower respiratory infection; E78.00 Pure hypercholesterolemia, unspecified; I10 Essential (primary) hypertension; M81.0 Age-related osteoporosis without current pathological fracture; J43.9 Emphysema, unspecified; E03.9 Hypothyroidism, unspecified; K44.9 Diaphragmatic hernia without obstruction or gangrene; M40.204 Unspecified kyphosis, thoracic region; K74.60 Unspecified cirrhosis of liver; I70.1 Atherosclerosis of renal artery; Z87.891 Personal history of nicotine dependence; Z11.52 Encounter for screening for COVID-19; H81.10 Benign paroxysmal vertigo, unspecified ear; Z79.51 Long term (current) use of inhaled steroids; Z79.890 Hormone replacement therapy; Z79.899 Other long term (current) drug therapy; R65.20 Severe sepsis without septic shock
CPT/HCPCS: 71046; 71275; 80048; 80053; 81003; 81015; 83605; 85025; 85027; 87040; 87449; 87502; 87811; 87899; 93005; 94640; 97116; 97162; 97166; 99285; Q9967